=== PATIENT | female | born 1955 | race African-American/Black ===

== ENCOUNTER → 2021-04-01 14:16 | Outpatient (CLI) | payer MEDICAID, SELFPAY ==
--- NOTE | 2021-04-01 14:40 | RAD_ITS ---
EXAM: XR LUMBOSACRAL SPINE COMPLETE WITH FLEXION/EXTENSION, 6 OR MORE VIEWS : 1955 CLINICAL INDICATION: LOW BACK PAIN TECHNIQUE: Lateral, frontal, oblique and lateral flexion/extension views of the lumbar spine and sacrum. This report was created using [email or web address] technology. COMPARISON: None. FINDINGS: VERTEBRAE: Unremarkable. Preserved vertebral body height. No fracture. No spondylolisthesis. Preservation of the normal lumbar lordosis. No significant facet arthropathy. No instability. DISC SPACES: There is mild disc space narrowing at L4-5. GASTROINTESTINAL TRACT: Unremarkable as visualized. Included bowel gas pattern is non-obstructive. RAD/L/S Spine Comp/w Bending Views IMPRESSION: No acute osseous abnormalities. There are mild degenerative changes in the lower lumbar spine with disc space narrowing. at 1806 Reported and signed by: Virgilio Nicolas MD Electronically Signed: Virgilio Nicolas MD at 18:05 EDT Tel , Service support ,
[2021-04-01 16:23] LABS: Amphetamine Urine VISTA NEGATIVE (<1000 ng/mL); Barbiturate Urine VISTA NEGATIVE (< 200 ng/mL); Benzodiazepine Urine VISTA NEGATIVE (< 200 ng/mL); Cocaine Urine VISTA NEGATIVE (< 300 ng/mL); Ecstacy Urine VISTA NEGATIVE (< 500 ng/mL); Methadone Urine VISTA NEGATIVE (< 300 ng/mL); PCP Urine VISTA NEGATIVE (< 25 ng/mL); THC Urine VISTA NEGATIVE (< 50 ng/mL); Vista UDS pH Range 7
== END ==
PROVIDERS: PCP Family Medicine; Referring Provider Anesthesiology; Visit Provider Anesthesiology
DX: F11.20 Opioid dependence, uncomplicated (principal); M54.5 Low back pain; M25.50 Pain in unspecified joint
CPT/HCPCS: 72114; 80307